=== PATIENT | female | born 1970 | race Caucasian/White ===

== ENCOUNTER 2017-07-31 16:55 | Inpatient (IN) | payer OTHER ==
[~2017-07-31] VITALS: Ht 160 cm; Wt 106.6 kg
--- NOTE | ~2017-07-31 | 2DMMODE ---
[facility] [address] [place] [address] 2 D/M-MODE ECHOCARDIOGRAM Name: SANJAY MÉNDEZ Room #: 360-P ADM IN .R.#: [id number] Admission: 07/31/17 Attend Phys: Mookie Chan Discharge: Date of : 66 Date of Service: 08/03/17 1003 Report #: [id number] THIS REPORT FOR: //name// APPROVED REPORT Study performed: 08/03/2017 08:47:49 EXAM: Comprehensive 2D, Doppler, and color-flow Echocardiogram Patient Location: Bedside Room #: 360 Status: routine BSA: 2.05 HR: 61 bpm BP: 152/99 mmHg Other Information Study Quality: Fair Indications Dyspnea CAD Chest Pain Hypertension/HDD 2D Dimensions LVEF(%): 59.78 (>50%) IVSd: 12.32 (7-11mm) LVOT Diam: 21.26 (18-24mm) LVDd: 52.11 mm PWd: 11.88 (7-11mm) Ascending Ao: 29.32 (22-36mm) LVDs: 35.42 (25-40mm) Aortic Root: 26.18 mm Cage's LVEF: 59.78 % Volumes Left Atrial Volume (Systole) Single Plane 4CH: 40.85 mL Single Plane 2CH: 58.39 mL LA ESV Index: 27.00 mL/m2 Aortic Valve AoV Peak Huber.: 1.76 m/s AO Peak Gr.: 12.37 mmHg LVOT Max P.96 mmHg LVOT Max V: 1.22 m/s KATY Vmax: 2.46 cm2 Mitral Valve [facility] [address] [address] 2 D/M-MODE ECHOCARDIOGRAM Name: SANJAY MÉNDEZ Room #: 360-P [facility] IN [facility]#: [id number] Admission: 07/31/17 Attend Phys: Mookie Chan Discharge: Date of : 66 Date of Service: 08/03/17 1003 Report #: [id number] E/A Ratio: 1.1 MV Decel. Time: 317.19 ms MV E Max Huber.: 0.93 m/s MV A Huber.: 0.84 m/s MV PHT: 91.98 ms IVRT: 87.66 ms Pulmonary Valve PV Peak Huber.: 1.06 m/s PV Peak Gr.: 4.49 mmHg Pulmonary Vein P Vein S: 0.49 m/s P Vein A: 0.29 m/s P Vein D: 0.24 m/s P Vein A Dur.: 133.8 msec P Vein S/D Ratio: 2.04 Left Ventricle The left ventricle is normal size. Regional wall motion is not well visualized but grossly normal. Mild concentric left ventricular hypertrophy. The left ventricular systolic function is normal. The left ventricular ejection fraction is within the normal range. LVEF is 55-60%. The left ventricular diastolic function is normal. Right Ventricle The right ventricle is normal size. The right ventricular systolic function is normal. Atria The left atrium size is normal. The right atrium size is normal. Aortic Valve The aortic valve is not well visualized. No aortic regurgitation is present. There is no aortic valvular stenosis. Mitral Valve The mitral valve is normal in structure. There is no mitral valve regurgitation noted. No evidence of mitral valve stenosis. Tricuspid Valve The tricuspid valve is normal in structure. There is no tricuspid valve regurgitation noted. Pulmonic Valve The pulmonary valve is normal in structure. There is no pulmonic valvular regurgitation. [facility] [address] [place] [address] 2 D/M-MODE ECHOCARDIOGRAM Name: SANJAY MÉNDEZ Room #: 360-P [facility] IN ..#: [id number] Admission: 07/31/17 Attend Phys: Mookie Chan Discharge: Date of : 66 Date of Service: 08/03/17 1003 Report #: [id number] Great Vessels The aortic root is normal in size. IVC is normal in size and collapses >50% with inspiration. Pericardium There is no pericardial effusion. <Conclusion> The left ventricular systolic function is normal. Regional wall motion is not well visualized but grossly normal. LVEF is 55-60%. The aortic valve is not well visualized. No aortic regurgitation or stenosis The mitral valve is normal in structure. No mitral valve regurgitation noted Pulmonary artery pressure could not be reliably ascertained There is no pericardial effusion. <ELECTRONICALLY SIGNED> By: Shayne Cleveland MD, FACC 08/03/17 1003 02 100 Shayne Cleveland MD, FAC /INF
--- NOTE | ~2017-07-31 | EKG ---
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[place] : 1970 Requested By: Bisi Easley Order Number: [id number] MD: Juan Pedersen Measurements Intervals [place] Rate: 70 P: 27 [place]: 184 QRS: -15 QRSD: 102 T: 23 QT: 448 QTc: 484 Interpretive Statements Sinus rhythm Borderline left axis deviation Low voltage, precordial leads Abnormal R-wave progression, late transition Baseline wander in lead(s) V3 Compared to ECG 08/17/2015 23:56:58 T-wave abnormality no longer present Electronically Signed On 08-01-2017 12:25:15 CDT by Juan Pedersen [email or web address] <ELECTRONICALLY SIGNED> By: Juan Pedersen MD 08/01/17 1225 1057 1057 Juan Pedersen MD /EPI
--- NOTE | ~2017-07-31 | CATHLAB ---
[facility] [address] [place] [address] INVASIVE PROCEDURE REPORT Name: SANJAY MÉNDEZ Room #: 360-P [facility] IN .R.#: [id number] Admission: 07/31/17 Attend Phys: Mookie Chan Discharge: Date of : 66 Date of Service: 08/03/17 1002 Report #: [id number] THIS REPORT FOR: //name// APPROVED REPORT Study performed: 08/02/2017 10:11:55 Patient Details Patient Status: In-Patient Room #: The patient is a 46 year-old female Event Personnel Bill Babin Outpatient Services Director, Mingo Mares RN RN, Marquez Lanza RN RN, Sanjay Funez RTR Monitor, Jesse Ford Monitor Procedures Performed Left Heart Cath w/or w/o Coronaries [id number] [facility], supervision of conscious sedation Indication Chest pain Risk Factors Family History, Coronary Artery Disease Previous Procedures/Diagnoses Previous PCI Procedure Narrative The Right Groin^ was infiltrated with 1% Lidocaine subcutaneous anesthesia. A PINNACLE 4FR Sheath #[id number] sheath was inserted into the RFA^. Coronary angiography was performed using coronary diagnostic catheters. The right coronary system was accessed and visualized with a JR4 catheter. The left coronary system was accessed and visualized with a JL4 catheter. The left ventricle was accessed and visualized with a PIGTAIL catheter. Left ventricular/Aortic Valve gradient assessed via catheter pullback. Hemostasis was obtained with manual pressure following sheath removal without any complications. The patient tolerated the procedure well and there were no complications associated with the procedure. There was no hematoma. Intraoperative Conscious Sedation Sedation start time: 01.06 Case end Time: [facility] [address] [place] [address] INVASIVE PROCEDURE REPORT Name: SANJAY MÉNDEZ Room #: 360-P [facility] IN [facility]#: [id number] Admission: 07/31/17 Attend Phys: Mookie Chan Discharge: Date of : 66 Date of Service: 08/03/17 1002 Report #: [id number] 11.16 Versed 3 mg Fluoro Time: 1.58 minutes Dose: DAP 4846.00 cGycm2 Contrast Type and Amount: Omnipaque 55 ml Diagnostic Cath Left Main Normal origin and large caliber bifurcates left anterior descending left circumflex. 3 of high-grade obstructive lesions LAD Moderate caliber type II vessel which courses in the anterior interventricular sulcus terminating is a small-caliber vessel at the apex. In its proximal third there is moderate luminal irregularities of less than 50%. He then continues his rise to a second diagonal branch which is small in caliber with luminal irregularities only. First diagonal is a small insignificant size vessel with ostial lesion arising immediately before the first septal med dir which is small in caliber with irregularities proximally Diagonal 1 Small insignificant size vessel with a proximal lesion Diagonal 2 Small caliber vessel approximately 1.0-1.5 mm diameter. It has proximal luminal irregularities which are mild but no obstructive lesions noted Circumflex Moderate to large caliber vessel which courses in the AV groove giving rise to a small insignificant first marginal branch. The second marginal branch is a moderate caliber vessel and has a proximal lesion of approximately 60-70%. It does not appear to impede flow as the vessel courses on the lateral aspect of the left ventricle free of high-grade disease in the circumflex proper also has a lesion at the same site of origin of approximately 60% at this bifurcation. It then continues a short way in this third moderate caliber marginal branch arises that has a 60% ostial lesion. The circumflex and continues on as a small caliber vessel after another moderate lesion at the site of this third diagonal origin. Joint is small posterior wall branch OM1 Small insignificant caliber vessel OM2 Moderate caliber vessel with a proximal lesion as described above OM3 Moderate caliber vessel with a proximal lesion as described above Right Coronary Large-caliber vessel of normal origin has proximal third irregularities of 30% or last. It then gives rise to a IV marginal branch which is quite small in size but has a proximal ostial lesion of at least 50%. The RCA then continues to the crux of the heart were a moderate to large caliber posterior descending [facility] [address] [place] [address] INVASIVE PROCEDURE REPORT Name: SANJAY MÉNDEZ Room #: 360-P [facility] IN M.R.#: [id number] Admission: 07/31/17 Attend Phys: Mookie Chan Discharge: Date of : 66 Date of Service: 08/03/17 1002 Report #: [id number] artery arises free of high-grade disease as it courses and terminates at the apex of the left ventricle. The distal right and consists of a posterior wall branch has bifurcating vessels with moderate lesions and a posterior lateral branch which is small in caliber free of high-grade disease with evidence of the artery to the AV node R PDA Large-caliber vessel without significant obstructive lesions are courses to the apex and terminates at the left ventricular inferoapical wall Left Ventriculography Left Ventriculography was not performed. Hemodynamics The aortic pressure is 138/100 mmHg with a mean of 118 mmHg. The left ventricular pressure is 147/11 mmHg with a mean of mmHg. The left ventricular end diastolic pressure is 19 mmHg. There was no gradient across the aortic valve upon pullback. Pullback from the left ventricle to the aorta revealed no gradient across the aortic valve. Conclusion 1. Coronary disease, consisting of mild RCA and LAD lesions with moderate left circumflex marginal branch disease involving a bifurcation 2. Normal hemodynamics Recommendations Cardiac Risk Reduction Program Aggressive Medical Therapy <ELECTRONICALLY SIGNED> By: Bill Babin MD 08/03/17 1002 1002 1002 Bill Babin MD /INF
[~2017-07-31 16:55] MED LIST: ARMOUR THYROID60 M1 PO; ASPIRIN325 PO; BACTRIM 400-801 EACH PO; CARVEDILOL6.25 MG PO; CITALOPRAM HBR40 MG PO; FOSAMAX 70 MG T70 MG PO; MAGOX 400400 MG PO; RESTORIL15 M1 PO; VITAMIN D1000 UNI1 PO; WELLBUTRIN 100100 MG PO
[2017-07-31 19:00] VITALS: BP 147/118
[2017-07-31 19:55] VITALS: BP 149/103
[2017-07-31] MEDS ORDERED: NORVASC10 MG PO (22:44)
[2017-07-31] MEDS ORDERED: PLAVIX 75 MG TA75 M1 PO (22:46)
[2017-07-31] MEDS ORDERED: NEXIUM40 MG PO (23:05)
[2017-07-31] MEDS ORDERED: FLUOXETINE HCL20 M1 PO (23:06)
[2017-07-31] MEDS ORDERED: IMDUR 30 MG TAB30 M1 PO ×2 (23:07→23:08)
[2017-07-31] MEDS ORDERED: MOBIC15 MG PO (23:08)
[2017-07-31 23:25] VITALS: BP 140/96
[2017-08-01 04:05] VITALS: BP 178/98
[2017-08-01 06:13] LABS: HEMATOCRIT 46.4 % (37.0-47.0); HEMOGLOBIN 15.7 gm/dL (12.0-15.0); MCH 28.8 pg (26.0-34.0); MCHC 33.8 g/dL (28.0-37.0); MCV 85.3 fL (80.0-100.0); RBC 5.44 mil/uL (4.20-5.00); RDW 13.4 % (10.5-14.5); WBC 5.9 thou/uL (4.0-11.0)
[2017-08-01 06:23] LABS: CALCIUM 8.9 mg/dL (8.5-10.1); CREATININE 0.7 mg/dL (0.6-1.0)
[2017-08-01 07:26] VITALS: BP 155/98
[2017-08-01 09:01] VITALS: BP 126/79
[2017-08-01 11:21] VITALS: BP 137/90
[2017-08-01 15:17] VITALS: BP 127/90
[2017-08-01 15:38] LABS: CALCIUM 9.5 mg/dL (8.5-10.1); CREATININE 0.9 mg/dL (0.6-1.0); POTASSIUM 4.4 mmol/L (3.5-5.1)
[2017-08-01 20:40] VITALS: BP 150/91
[2017-08-02] VITALS (19 sets, daily range): BP systolic 113–156; BP diastolic 75–100
[2017-08-03 00:25] VITALS: BP 139/95
[2017-08-03 03:25] VITALS: BP 136/101
[2017-08-03 06:39] LABS: MCHC 34.1 g/dL (28.0-37.0); MCV 85.1 fL (80.0-100.0); RBC 5.17 mil/uL (4.20-5.00); RDW 13.2 % (10.5-14.5); WBC 7.7 thou/uL (4.0-11.0)
[2017-08-03 07:04] LABS: CALCIUM 9.5 mg/dL (8.5-10.1); CREATININE 0.8 mg/dL (0.6-1.0); POTASSIUM 3.8 mmol/L (3.5-5.1)
[2017-08-03 07:11] VITALS: BP 152/99
[2017-08-03] MEDS ORDERED: IMDUR 60 MG TAB60 M1 PO (09:40)
[2017-08-03] MEDS ORDERED: METOPROLOL SUCC25 M1 PO (09:40)
[2017-08-03] MEDS ORDERED: ASPIR 8181 MG PO (09:41)
[2017-08-03 10:30] VITALS: BP 152/99
== END 2017-08-03 12:55 | disposition home or self-care (01) | DRG 287 ==
LOC: 2N 16:55 → 3W 19:01 → ENTRNSPT 08-03 12:40 → EDTRNSPTSTS 08-03 12:42 → 3W 08-03 12:55
PROVIDERS: Internal Medicine; Nurse Practitioner Family
PROC: 4A023N7 Measurement of Cardiac Sampling and Pressure, Left Heart, Percutaneous Approach (ICD-10-PCS; principal; 2017-08-02)
PROC: B2111ZZ Fluoroscopy of Multiple Coronary Arteries using Low Osmolar Contrast (ICD-10-PCS; principal; 2017-08-02)
DX: I25.110 Atherosclerotic heart disease of native coronary artery with unstable angina pectoris (principal); Z68.41 Body mass index [BMI] 40.0-44.9, adult; I10 Essential (primary) hypertension; F32.9 Major depressive disorder, single episode, unspecified; E78.00 Pure hypercholesterolemia, unspecified; F17.210 Nicotine dependence, cigarettes, uncomplicated; K21.9 Gastro-esophageal reflux disease without esophagitis; G47.33 Obstructive sleep apnea (adult) (pediatric); E66.9 Obesity, unspecified; E78.5 Hyperlipidemia, unspecified; Z95.5 Presence of coronary angioplasty implant and graft; Z79.899 Other long term (current) drug therapy; Z79.82 Long term (current) use of aspirin; Z90.49 Acquired absence of other specified parts of digestive tract; Z71.6 Tobacco abuse counseling; Z82.49 Family history of ischemic heart disease and other diseases of the circulatory system
CPT/HCPCS: 10879

== ENCOUNTER 2017-10-10 15:41 | Inpatient (IN) | payer OTHER ==
[~2017-10-10] VITALS: Ht 160 cm; Wt 124.9 kg
--- NOTE | ~2017-10-10 | EKG ---
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
--- NOTE | ~2017-10-10 | EKG ---
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: [facility] : 1970 Requested By: Jun Ramirez Order Number: [id number] MD: Shayne Cleveland Measurements Intervals [place] Rate: 70 P: 28 [place]: 187 QRS: -18 QRSD: 104 T: 2 QT: 439 QTc: 474 Interpretive Statements Sinus rhythm Nonspecific ST and T wave abnormality Baseline wander in lead(s) V2 Compared to ECG 08/01/2017 10:57:32 no significant change was found Electronically Signed On 10-11-2017 7:46:22 CDT by Shayne Cleveland [email or web address] <ELECTRONICALLY SIGNED> By: Shayne Cleveland MD, [facility] 10/11/17 0746 1552 1552 Shayne Cleveland MD, [facility] /EPI
--- NOTE | ~2017-10-10 | CATHLAB ---
[facility] [address] [place] [address] INVASIVE PROCEDURE REPORT Name: SANJAY MÉNDEZ Room #: 212-P DIS IN R.#: [id number] Admission: 10/10/17 Attend Phys: Vipul Jacobsen MD Discharge: 10/12/17 Date of : 66 Date of Service: 10/12/17 1336 Report #: [id number] THIS REPORT FOR: //name// APPROVED REPORT Study performed: 10/11/2017 12:04:55 Patient Details Patient Status: In-Patient Room #: The patient is a 47 year-old female Event Personnel Marques Barvo Ethnic Origins Teacher, Kateryna Degroot [place], Nancy RTR, NURSERY HELPER Monitor, Mingo Mares RN RN, Sanjay Funez RTR Monitor Procedures Performed Art Access - R femoral artery* Hemostasis w/ Mynx Left Heart Cath w/or w/o Coronaries [id number] [facility] w/wo Plasty Single CIRC 720426 05855 Initial Mod Sed Same Phys/QHP Gr5y 213932 42509 Mod Sed Same Phys/QHP Ea 790333 Indication Dyspnea, Unstable angina , Chest pain Risk Factors Obesity, Hypercholesterolemia, Coronary Artery DiseaseHypertension, Tobacco History () Previous Procedures/Diagnoses Previous PCI Procedure Narrative The Right Groin^ was infiltrated with 1% Lidocaine subcutaneous anesthesia. A PINNACLE 4FR Sheath #[id number] sheath was inserted into the RFA^. Coronary angiography was performed using coronary diagnostic catheters. The right coronary system was accessed and visualized with a JR4 catheter. The left coronary system was accessed and visualized with a JL4 catheter. The left ventricle was accessed and visualized with a JR4 catheter. Left ventricular/Aortic Valve gradient assessed via catheter pullback. Pre-demployment femoral angiogram was performed . Closure device was deployed with a 6 Fr MYNXGRIP 6/7F #[id number]. The patient tolerated the procedure well and there were no complications associated with the procedure. There was no hematoma. [facility] [address] [place] [address] INVASIVE PROCEDURE REPORT Name: SANJAY MÉNDEZ Isaiah Room #: 212-P [facility] IN [facility]#: [id number] Admission: 10/10/17 Attend Phys: Vipul Jacobsen MD Discharge: 10/12/17 Date of : 66 Date of Service: 10/12/17 1336 Report #: [id number] Intraoperative Conscious Sedation Sedation start time: 12:47 Case end Time: 14:44 Fentanyl 150 mcg Versed 4 mg Fluoro Time: 32.33 minutes Dose: DAP 57831.70 cGycm2 5219 mGy Contrast Type and Amount: Omnipaque 300 ml Diagnostic Cath Left Main Patent vessel, with no flow limiting lesions. LAD Mild diffuse disease in proximal and mid segments, 20-30%. Circumflex severe stenosis in mid segment at bifurcation of OM1, 80%. OM1 severe ostial stenosis. OM2 Patent vessel, with no flow limiting lesions. Right Coronary dominant vessel with mild disease in proximal segments, 20-30%. R PDA Patent vessel, with no flow limiting lesions. RPLV Patent vessel, with no flow limiting lesions. Left Ventriculography Left Ventriculography was not performed. Ejection Fraction was >55% based off patient's Echocardiogram. An LVEDP was measured and there is no gradient across the outflow tract. Hemodynamics The aortic pressure is 162/99 mmHg with a mean of 97 mmHg. The left ventricular pressure is 187/15 mmHg with a mean of mmHg. The left ventricular end diastolic pressure is 43 mmHg. PCI Technique Lesion Anticoagulation was achieved with Angiomax. Patient was preloaded with Effient. Percutaneous coronary intervention was performed on the mid circumflex artery segment. The lesion stenosis prior to intervention was 80% with VALDEMAR 2 flow. A VISTA 6FR XB 3.5 #[id number] Guide Catheter was used to engage the LCA ostium. A Luge Wire .014 x 182CM #[id number] Interventional Guidewire was used to cross the lesion. BALLOON DILATION A Balloon catheter Euphora RX 2.0 x12 #[id number] was inserted and inflated up to 16.00atm for 43seconds. [facility] [address] [place] [address] INVASIVE PROCEDURE REPORT Name: SANJAY MÉNDEZ Room #: 212-P [facility] IN M.R.#: [id number] Admission: 10/10/17 Attend Phys: Vipul Jacobsen MD Discharge: 10/12/17 Date of : 66 Date of Service: 10/12/17 1336 Report #: [id number] STENT DEPLOYMENT A drug-eluting stent RESOLUTE RX 2.75 X 12 #[id number] was inserted and inflated up to 9.00atm for 25seconds. POST STENT DEPLOYMENT BALLOON DILATION A Balloon catheter TREK NC RX 3.0 X 8 #[id number] was inserted and inflated up to 18.00atm for 25seconds. Additional Inflation: 20.00atm for 20seconds. EUPHORA NC RX 3.25 X 6 #[id number] used to post dilate 20 miriam for 22 sec Additional inflations with EUPHORA RX 2.5 X 12 #[id number] - 15 miriam for 11 sec Additional inflations with EUPHORA NC RX 3.25 X 6 - 20 miriam for 28 sec and 20 miriam for 16 sec Final angiography reveals 5 % stenosis with VALDEMAR 3 flow. PCI Technique Lesion 2 Percutaneous Coronary Intervention was performed on the first obtuse marginal branch segment. Patient was preloaded with Effient. The lesion stenosis prior to intervention was 70% with VALDEMAR 3 flow. A PuzzliumTA 6FR XB 3.5 #[id number] Guide Catheter was used to engage the ostium. A eShares Soft Wire .014 x 180cm #[id number] Interventional Guidewire was used to cross the lesion. Balloon Dilation A Balloon catheter Euphora RX 2.0 x12 #[id number] was inserted and inflated up to 12.00atm for 20seconds. Additional inflations with EUPHORA RX 1.5 X 6 - 14 miriam for 29 sec and 16 miriam for 17 sec Additional inflations with EUPHORA RX 2.0 X 10 - 6 miriam for 28 sec and 10 miriam for 23 sec Stent Deployment A drug-eluting stent RESOLUTE RX 2.5 X 14 #[id number] was inserted and inflated up to 8.00atm for 25seconds. Final angiography reveals 5 % stenosis with VALDEMAR 3 flow. Conclusion 1. Successful insertion of 2 LEVI at the bifurcation of LCx and OM1. 2. Mild disease in LAD and RCA. 3. Recommend dual antiplatelet therapy. <ELECTRONICALLY SIGNED> By: Marques Bravo MD 10/12/17 1336 aMrques Bravo MD /INF
--- NOTE | ~2017-10-10 | EKG ---
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 : 1970 Requested By: Marques Bravo Order Number: [id number] MD: Shayne Cleveland Measurements Intervals [place] Rate: 55 P: 33 [place]: 206 QRS: -8 QRSD: 101 T: 0 QT: 470 QTc: 450 Interpretive Statements Sinus rhythm Borderline prolonged UT interval Compared to ECG 10/10/2017 15:52:14 No significant change was found Electronically Signed On 10-12-2017 8:57:48 CDT by Shayne Cleveland [email or web address] <ELECTRONICALLY SIGNED> By: Shayne Cleveland MD, [facility] 10/12/17 0857 1558 1558 Shayne Cleveland MD, [facility] /EPI
[~2017-10-10 15:41] MED LIST changes: +ASPIR 8181 MG PO; +FLUOXETINE HCL20 M1 PO; +IMDUR 30 MG TAB30 M1 PO; +IMDUR 60 MG TAB60 M1 PO; +METOPROLOL SUCC25 M1 PO; +MOBIC15 MG PO; +NEXIUM40 MG PO; +NORVASC10 MG PO; +PLAVIX 75 MG TA75 M1 PO
[2017-10-10 15:52] VITALS: BP 139/86
[2017-10-10 16:22] LABS: ABSOLUTE NEUTROPHILS 5.1 thou/uL (1.4-8.2); BASOPHILS 0.9 % (0.0-2.0); EOSINOPHILS 2.1 % (0.0-3.0); HEMATOCRIT 38.5 % (37.0-47.0); HEMOGLOBIN 13.2 gm/dL (12.0-15.0); MCH 29.1 pg (26.0-34.0); MCHC 34.3 g/dL (28.0-37.0); MCV 84.8 fL (80.0-100.0); MONOCYTES 7.5 % (1.0-8.0); PLATELET COUNT 200 thou/uL (150-400); POLYS 65.5 % (36.0-66.0); RBC 4.55 mil/uL (4.20-5.00); RDW 13.7 % (10.5-14.5); WBC 7.8 thou/uL (4.0-11.0)
[2017-10-10 16:31] LABS: ANION GAP 10 mmol/L (7-16); BUN 20 mg/dL (7-18); CALCIUM 8.6 mg/dL (8.5-10.1); CHLORIDE 106 mmol/L (98-107); CO2 27 mmol/L (21-32); GLUCOSE 151 mg/dL (74-106); POTASSIUM 3.8 mmol/L (3.5-5.1); SODIUM 143 mmol/L (136-145)
[2017-10-10 16:39] LABS: ALBUMIN 3.4 g/dL (3.4-5.0); LIPASE 202 U/L (73-393); SGOT 16 U/L (15-37); SGPT 20 U/L (30-65); TOTAL BILIRUBIN 0.4 mg/dL (<0.1-1.0); TOTAL PROTEIN 6.9 g/dL (6.4-8.2); TROPONIN-I <0.06 ng/mL (<0.06)
[2017-10-10 17:45] LABS: URINE BILIRUBIN NEGATIVE (Negative); URINE BLOOD TRACE (Negative); URINE CLARITY CLEAR; URINE COLOR YELLOW; URINE GLUCOSE-RANDOM* NEGATIVE (Negative); URINE KETONES NEGATIVE (Negative); URINE LEUKOCYTES-REFLEX NEGATIVE (Negative); URINE NITRITE-REFLEX NEGATIVE (Negative); URINE PROTEIN (DIPSTICK) 2+ (Negative); URINE SPECIFIC GRAVITY >= 1.030 (1.005-1.035)
[2017-10-10 17:52] LABS: BACTERIA-REFLEX 1-9 Few /HPF (None Seen); CASTS None Seen /LPF (None Seen); CRYSTALS None Seen /LPF (None Seen); MUCUS 0-3 Light strn/LPF (None Seen); SQUAMOUS 0-3 Few /LPF (0-3); URINE RBC 0-2 Rare /HPF (0-2); URINE WBC-REFLEX 0-5 Rare /HPF (0-5)
[2017-10-10 17:55] LABS: AMP/METHAMP Negative (Negative); BARBITURATES Negative (Negative); BENZODIAZEPINES Negative (Negative); COCAINE Negative (Negative); METHADONE Negative (Negative); OPIATES Negative (Negative); PCP Negative (Negative)
[2017-10-10 18:07] VITALS: BP 135/87
[2017-10-10 19:01] VITALS: BP 143/82
[2017-10-10 20:00] VITALS: BP 126/85
[2017-10-10] MEDS ORDERED: PLAVIX 75 MG TA75 M1 PO (20:58)
[2017-10-10] MEDS ORDERED: TOPROL XL25 MG PO (20:58)
[2017-10-10] MEDS ORDERED: LIPITOR 20 MG T20 M1 PO (20:58)
[2017-10-10] MEDS ORDERED: IMDUR 60 MG TAB60 M1 PO (20:59)
[2017-10-10] MEDS ORDERED: PROZAC20 MG PO (21:00)
[2017-10-10] MEDS ORDERED: NORVASC10 MG PO (21:00)
[2017-10-10] MEDS ORDERED: BAYER CHEWABLE81 MG PO (21:03)
[2017-10-11 01:13] LABS: HEMOGLOBIN 12.8 gm/dL (12.0-15.0); MCH 28.8 pg (26.0-34.0); MCHC 33.6 g/dL (28.0-37.0); MCV 85.7 fL (80.0-100.0); RBC 4.43 mil/uL (4.20-5.00); RDW 13.6 % (10.5-14.5); WBC 6.1 thou/uL (4.0-11.0)
[2017-10-11 01:21] LABS: CALCIUM 8.5 mg/dL (8.5-10.1); CREATININE 0.8 mg/dL (0.6-1.0); POTASSIUM 3.7 mmol/L (3.5-5.1)
[2017-10-11 04:12] VITALS: BP 147/95
[2017-10-11 07:17] VITALS: BP 164/102
[2017-10-11 15:30] VITALS: BP 144/92
[2017-10-11 19:26] VITALS: BP 132/72
[2017-10-12 04:05] LABS: ALBUMIN 3.2 g/dL (3.4-5.0); CALCIUM 9.1 mg/dL (8.5-10.1); CREATININE 0.9 mg/dL (0.6-1.0); POTASSIUM 4.2 mmol/L (3.5-5.1); TOTAL BILIRUBIN 0.6 mg/dL (<0.1-1.0); TOTAL PROTEIN 6.7 g/dL (6.4-8.2); TROPONIN-I 0.17 ng/mL (<0.06)
[2017-10-12 04:32] VITALS: BP 131/81
[2017-10-12 05:02] LABS: HEMATOCRIT 38.7 % (37.0-47.0); HEMOGLOBIN 13.2 gm/dL (12.0-15.0); MCH 29.1 pg (26.0-34.0); MCHC 34.1 g/dL (28.0-37.0); MCV 85.2 fL (80.0-100.0); RBC 4.54 mil/uL (4.20-5.00); RDW 13.8 % (10.5-14.5); WBC 6.1 thou/uL (4.0-11.0)
[2017-10-12 07:53] VITALS: BP 129/78
[2017-10-12] MEDS ORDERED: EFFIENT10 MG PO (09:14)
[2017-10-12 09:18] VITALS: BP 129/78
== END 2017-10-12 10:34 | disposition home or self-care (01) | DRG 246 ==
LOC: ER 15:41 → 3W 18:12 → EROBS 18:12 → 3W 19:03 → 2N 10-11 14:12 → ENTRNSPT 10-12 10:20 → EDTRNSPTSTS 10-12 10:24 → 2N 10-12 10:34
PROVIDERS: Hospitalist; Internal Medicine Cardiovascular Disease; Physician Assistant
PROC: 0271356 Dilation of Coronary Artery, Two Arteries, Bifurcation, with Two Drug-eluting Intraluminal Devices, Percutaneous Approach (ICD-10-PCS; principal; 2017-10-12)
PROC: 4A023N7 Measurement of Cardiac Sampling and Pressure, Left Heart, Percutaneous Approach (ICD-10-PCS; principal; 2017-10-12)
PROC: B2111ZZ Fluoroscopy of Multiple Coronary Arteries using Low Osmolar Contrast (ICD-10-PCS; principal; 2017-10-12)
DX: I25.10 Atherosclerotic heart disease of native coronary artery without angina pectoris (principal); I50.33 Acute on chronic diastolic (congestive) heart failure; E78.00 Pure hypercholesterolemia, unspecified; F32.9 Major depressive disorder, single episode, unspecified; K21.9 Gastro-esophageal reflux disease without esophagitis; G47.33 Obstructive sleep apnea (adult) (pediatric); R20.2 Paresthesia of skin; F17.210 Nicotine dependence, cigarettes, uncomplicated; Z95.5 Presence of coronary angioplasty implant and graft; Z90.49 Acquired absence of other specified parts of digestive tract; Z79.82 Long term (current) use of aspirin; Z79.899 Other long term (current) drug therapy; I11.0 Hypertensive heart disease with heart failure
CPT/HCPCS: 10779; 10797

== ENCOUNTER → 2019-03-28 | Outpatient (CLI) | payer OTHER ==
[~2019-03-28] MED LIST changes: +BAYER CHEWABLE81 MG PO; +EFFIENT10 MG PO; +LIPITOR 20 MG T20 M1 PO; +PROZAC20 MG PO; +TOPROL XL25 MG PO
== END ==
LOC: SJCVC 14:01
DX: I25.10 Atherosclerotic heart disease of native coronary artery without angina pectoris (principal); R94.31 Abnormal electrocardiogram [ECG] [EKG]; I10 Essential (primary) hypertension; E78.00 Pure hypercholesterolemia, unspecified; J44.9 Chronic obstructive pulmonary disease, unspecified; K21.9 Gastro-esophageal reflux disease without esophagitis; E78.5 Hyperlipidemia, unspecified; F17.200 Nicotine dependence, unspecified, uncomplicated; Z79.899 Other long term (current) drug therapy; Z79.82 Long term (current) use of aspirin

== ENCOUNTER → 2019-04-24 | Outpatient (CLI) | payer OTHER | LOC: SJCVCIMAG 11:38 | DX: I25.10 Atherosclerotic heart disease of native coronary artery without angina pectoris (principal); I10 Essential (primary) hypertension; E78.00 Pure hypercholesterolemia, unspecified; F32.9 Major depressive disorder, single episode, unspecified; K21.9 Gastro-esophageal reflux disease without esophagitis; Z79.899 Other long term (current) drug therapy; Z72.0 Tobacco use ==

== ENCOUNTER → 2020-10-29 | Outpatient (CLI) | payer OTHER | LOC: SJCVCIMAG 09:41 | PROVIDERS: ATTEND Internal Medicine Cardiovascular Disease | DX: R94.31 Abnormal electrocardiogram [ECG] [EKG] (principal); I25.10 Atherosclerotic heart disease of native coronary artery without angina pectoris; I10 Essential (primary) hypertension; E78.00 Pure hypercholesterolemia, unspecified; E78.5 Hyperlipidemia, unspecified; G43.909 Migraine, unspecified, not intractable, without status migrainosus; E66.9 Obesity, unspecified; Z87.891 Personal history of nicotine dependence; Z72.89 Other problems related to lifestyle; Z79.82 Long term (current) use of aspirin; Z79.84 Long term (current) use of oral hypoglycemic drugs; Z79.899 Other long term (current) drug therapy ==

== ENCOUNTER → 2021-04-22 | Outpatient (CLI) | payer OTHER | LOC: SJCVCIMAG 09:26 | PROVIDERS: ATTEND Internal Medicine Cardiovascular Disease | DX: I25.10 Atherosclerotic heart disease of native coronary artery without angina pectoris (principal); I10 Essential (primary) hypertension; E78.00 Pure hypercholesterolemia, unspecified; E11.9 Type 2 diabetes mellitus without complications; M19.90 Unspecified osteoarthritis, unspecified site; J45.909 Unspecified asthma, uncomplicated; J44.9 Chronic obstructive pulmonary disease, unspecified; F32.9 Major depressive disorder, single episode, unspecified; K21.9 Gastro-esophageal reflux disease without esophagitis; E66.9 Obesity, unspecified; G47.30 Sleep apnea, unspecified; G43.909 Migraine, unspecified, not intractable, without status migrainosus; Z87.891 Personal history of nicotine dependence; Z72.89 Other problems related to lifestyle; Z79.82 Long term (current) use of aspirin; Z79.899 Other long term (current) drug therapy; Z82.49 Family history of ischemic heart disease and other diseases of the circulatory system ==